=== PATIENT | male | born 1955 | race Caucasian/White ===

== ENCOUNTER 2024-09-27 07:01 | Day surgery (SDC) | payer MEDICARE, OTHER ==
[~2024-09-27] VITALS: Ht 172.7 cm; Wt 75.8 kg
[~2024-09-27 07:01] MED LIST: ASPIR 8181 M1 PO; ATOR20 PO; LISI20 PO; Lactated Ringer's 1,000 ML IV ONE; METO50ER PO; MULTI-VITAMIN1 EAC2 PO; TAMS.4ER PO; Vitamin B Comple1 EA PO
[2024-09-27] MEDS ORDERED: Lidocaine 2%-Epineph 1:100000 20 ML MDV ONE (07:03)
[2024-09-27] MEDS ORDERED: CeFAZolin Sodium 2,000 MG VIAL ONE (07:32)
[2024-09-27] MEDS ORDERED: Lactated Ringer's 1,000 ML IV ONE ×2 (07:45→10:05)
[2024-09-27] MEDS ORDERED: HYDCHL25 PO (07:53)
[2024-09-27] MEDS ORDERED: OLME20 PO (07:54)
[2024-09-27] MEDS ORDERED: EPINEPhrine HCl 1 MG/ML 1ML Amp ONE (08:49)
[2024-09-27] MEDS ORDERED: FentaNYL Citrate 50 MCG/ML 2 ML Injection IV ONE ×2 (08:51→09:40)
[2024-09-27] MEDS ORDERED: propofoL 20 ML IV ONE (08:51)
[2024-09-27] MEDS ORDERED: Midazolam HCl 1MG / ML 2ML Vial IV ONE (08:51)
[2024-09-27] MEDS ORDERED: Phenylephrine HCl 100 MCG/ML-NS 10MLSYR (1MG/10ML) IV ONE ×2 (09:15→09:32)
[2024-09-27] MEDS ORDERED: Dexamethasone Sod Phos 10 MG/ML 1ML VIAL IV ONE (09:24)
[2024-09-27] MEDS ORDERED: Ondansetron HCl 2 MG / ML 2ML Vial IV ONE (09:24)
[2024-09-27] MEDS ORDERED: FentaNYL Citrate 50 MCG/ML 2 ML Injection ONE (10:36)
[2024-09-27] MEDS ORDERED: OxyCODONE HCL 5 MG TAB ONE (10:55)
--- NOTE | 2024-09-27 12:26 | NUR ---
09/27/24 1226 Frankie Terry PT VOIDED PRIOR TO D/C. HE WAS ADVISED TO MONITOR B/P AT HOME, AND FOLLOW UP WITH PCP NEEDED. PT DENIED WEAKNESS, SUBRAMANIAN, VISUAL DISTURBANCE, DIZZINESS, CP, SOB, AND NAUSEA THROUGHOUT STAYIN SDU. NONE WAS OBSERVED. HE DENIED PAIN AND NAUSEA AT TIME OF D/C. HE EXPRESSED READINESS TO RETURN HOME.
[2024-09-27 12:28] VITALS: BP 154/95
== END 2024-09-27 12:20 | disposition home or self-care (01) ==
LOC: ORSCSDS 07:01
PROVIDERS: Orthopaedic Surgery
PROC: 0SBC4ZZ Excision of Right Knee Joint, Percutaneous Endoscopic Approach (ICD-10-PCS; principal; 2024-09-27 09:00)
DX: S83.241A Other tear of medial meniscus, current injury, right knee, initial encounter (principal); S83.221A Peripheral tear of medial meniscus, current injury, right knee, initial encounter; I10 Essential (primary) hypertension; Z79.82 Long term (current) use of aspirin; Z79.899 Other long term (current) drug therapy
CPT/HCPCS: A9270; J0171; J0690; J1100; J2250; J2371; J2405; J2704; J3010; J7120